=== PATIENT | male | born 1945 | race Caucasian/White ===

== ENCOUNTER 2019-08-11 15:23 | Observation (INO) ==
[2019-08-11 16:38] LABS: Basophils % 0.2 %; Eosinophils # 0.1 K/mcL (0.0-0.6); Eosinophils % 1.8 %; Hematocrit 35.9 % (37.5-50.1); Hemoglobin 11.9 g/dL (12.9-16.9); Immature Granulocytes % 0.8 % (0-4); Lymphocytes # 1.9 K/mcL (0.6-4.6); Lymphocytes % 37.2 %; Mean Corpuscular HGB Conc 33.1 g/dL (31.6-35.5); Mean Corpuscular Hemoglobin 30.1 pg (28.0-33.3); Mean Corpuscular Volume 90.9 fL (83.0-100.0); Mean Platelet Volume 9.7 fL (9.4-12.4); Monocytes # 0.6 K/mcL (0.0-1.3); Monocytes % 11.1 %; Neutrophils # 2.5 K/mcL (1.6-8.9); Platelet Count 200 K/mcL (140-400); Red Blood Count 3.95 M/mcL (4.19-5.50); Red Cell Distribution Width 13.4 % (11.5-14.5); Segmented Neutrophils % 48.9 %; White Blood Count 5.1 K/mcL (4.3-11.1)
[2019-08-11 17:10] LABS: BUN/Creatinine Ratio 14 (6-26); Blood Urea Nitrogen 32 mg/dL (8-23); Calcium 9.1 mg/dL (8.6-10.3); Carbon Dioxide 27 mEq/L (23-29); Chloride 99 mEq/L (98-107); Creatine Kinase 98 Units/L (30-223); Glucose 111 mg/dL (70-105); Magnesium 1.8 mg/dL (1.6-2.6); Osmolality,Calculated 292 (280-300); Phosphorous 3.5 mg/dL (2.7-4.5); Potassium 3.4 mEq/L (3.5-5.1); Sodium 137 mEq/L (136-145); eGFR For African Americans 33 (> 60); eGFR For Non-African Americans 27 (> 60)
[2019-08-11 17:36] LABS: Folate 3.1 ng/mL (3.0-16.0)
[2019-08-11] MEDS ORDERED: 0.9 % Sodium Chloride 1,000 ML IVC ONE (17:46)
[2019-08-11 17:56] LABS: Acetaminophen < 10 mcg/mL (10-20); Ethanol < 10 mg/dL (Less than 10)
[2019-08-11 18:37] LABS: Bilirubin,Urine Negative (Negative); Blood,Urine Negative (Negative); Clarity,Urine Clear (Clear); Color,Urine Yellow (Yellow); Glucose,Urine (UA) Normal (Normal); Ketones,Urine Negative (Negative); Leukocyte Esterase,Urine Negative (Negative); Nitrite,Urine Negative (Negative); PH,Urine 6.5 pH Units (5.0-8.0); Protein,Urine Trace mg/dL (Neg-Trace); Specific Gravity,Urine 1.022 (1.010-1.025); Urobilinogen,Urine Normal (Normal)
[2019-08-11 19:03] LABS: Amphetamine Screen,Urine Negative ng/mL (Cutoff=1000); Barbiturate Screen,Urine Negative ng/mL (Cutoff=200); Benzodiazepines Screen,Urine Negative ng/mL (Cutoff=200); Cannabinoid Screen,Urine Negative ng/mL (Cutoff = 50); Cocaine Screen,Urine Negative ng/mL (Cutoff= 300); Opiate Screen,Urine Negative ng/mL (Cutoff=300); Phencyclidine Screen,Urine Negative ng/mL (Cutoff=25)
[2019-08-11] MEDS ORDERED: Aspirin 325 MG TABLET PO ONE (19:54)
[2019-08-11 20:16] LABS: Prothrombin Time 11.7 Seconds (9.4-12.1)
[2019-08-11 20:18] LABS: Activated Partial Thrombo Time 32.7 Seconds (26.0-36.0)
[2019-08-11] MEDS ORDERED: Naloxone 0.4 MG/ML INJ IVP PRN (20:36)
[2019-08-11] MEDS ORDERED: 0.9 % Sodium Chloride 1,000 ML IVC SCH (20:45)
[2019-08-11] MEDS ORDERED: *HR* Heparin 5,000 UNIT/ML VIAL IVP ONE (21:48)
[2019-08-11] MEDS ORDERED: *HR* Heparin 5,000 UNIT/ML VIAL IVP PRN ×2 (21:48)
[2019-08-11] MEDS ORDERED: *HR* Dextrose 50 % in Water (Syg) 50 ML SYRINGE IVP PRN (21:50)
[2019-08-11] MEDS ORDERED: Dextrose Gel 15 GM/37.5 ML TUBE PO PRN ×2 (21:50)
[2019-08-11] MEDS ORDERED: D5% in Water 1,000 ML IVC PRN (21:50)
[2019-08-11 22:12] LABS: Heparin anti-factor XA UFH < 0.04 IU/mL (0.30-0.70)
[2019-08-11 22:13] LABS: INR 1.1; Prothrombin Time 12.3 Seconds (9.4-12.1)
[2019-08-11] MEDS: Potassium Chloride Elixir 20 MEQ/15 ML UDC PO SCH (22:40)
[2019-08-11] MEDS: Heparin 25,000 UNIT/250 ML D5W 25,000 UNIT/250 ML IV.SOLN IVC SCH (22:40)
[2019-08-11] MEDS: 0.9 % Sodium Chloride 1,000 ML IVC SCH (22:43)
[2019-08-11] MEDS: Insulin LISPRO 300 UNITS/3 ML VIAL SQ SCH (22:46)
[2019-08-12] MEDS: Potassium Chloride Elixir 20 MEQ/15 ML UDC PO SCH (00:13)
[2019-08-12 00:57] LABS: Basophils % 0.4 %; Eosinophils # 0.1 K/mcL (0.0-0.6); Eosinophils % 1.5 %; Hemoglobin 11.8 g/dL (12.9-16.9); Immature Granulocytes % 0.3 % (0-4); Lymphocytes # 2.9 K/mcL (0.6-4.6); Lymphocytes % 42.2 %; Mean Corpuscular HGB Conc 32.8 g/dL (31.6-35.5); Mean Corpuscular Hemoglobin 29.8 pg (28.0-33.3); Mean Corpuscular Volume 90.9 fL (83.0-100.0); Mean Platelet Volume 10.1 fL (9.4-12.4); Monocytes # 0.6 K/mcL (0.0-1.3); Monocytes % 9.2 %; Neutrophils # 3.1 K/mcL (1.6-8.9); Platelet Count 209 K/mcL (140-400); Red Blood Count 3.96 M/mcL (4.19-5.50); Red Cell Distribution Width 13.5 % (11.5-14.5); Segmented Neutrophils % 46.4 %; White Blood Count 6.8 K/mcL (4.3-11.1)
[2019-08-12 00:59] LABS: Calcium 8.8 mg/dL (8.6-10.3); Magnesium 1.6 mg/dL (1.6-2.6); Phosphorous 2.4 mg/dL (2.7-4.5); Potassium 3.8 mEq/L (3.5-5.1)
[2019-08-12 04:40] LABS: Estimated Average Glucose 131 mg/dl
[2019-08-12] MEDS: 0.9 % Sodium Chloride 1,000 ML IVC SCH ×2 (05:24→17:19)
[2019-08-12] MEDS: Insulin LISPRO 300 UNITS/3 ML VIAL SQ SCH ×3 (07:42→17:19)
[2019-08-12] MEDS ORDERED: Perflutren Lipid Microsphere 1.3 ML in 0.9 % Sodium Chloride 8.7 ML IVP ONE (09:57)
[2019-08-12] MEDS: Gabapentin 400 MG CAPSULE PO SCH ×2 (13:06→20:55)
[2019-08-12] MEDS: Aspirin Enteric Coated 81 MG Tablet PO SCH (15:30)
[2019-08-12] MEDS: predniSONE 20 MG TABLET PO SCH (15:30)
[2019-08-12] MEDS ORDERED: Insulin LISPRO 300 UNITS/3 ML VIAL SQ SCH (21:00)
[2019-08-13] MEDS ORDERED: *HR* HYDROmorphone 2 MG TABLET PO ONE (00:12)
[2019-08-13] MEDS: 0.9 % Sodium Chloride 1,000 ML IVC SCH (01:20)
[2019-08-13 01:47] LABS: Hematocrit 34.8 % (37.5-50.1); Hemoglobin 11.5 g/dL (12.9-16.9); Immature Granulocytes % 1.1 % (0-4); Lymphocytes # 0.5 K/mcL (0.6-4.6); Mean Corpuscular Volume 90.9 fL (83.0-100.0); Mean Platelet Volume 9.7 fL (9.4-12.4); Monocytes # 0.1 K/mcL (0.0-1.3); Monocytes % 1.9 %; Platelet Count 192 K/mcL (140-400); Red Blood Count 3.83 M/mcL (4.19-5.50); Red Cell Distribution Width 13.2 % (11.5-14.5); White Blood Count 3.6 K/mcL (4.3-11.1)
[2019-08-13 02:05] LABS: Calcium 8.8 mg/dL (8.6-10.3); Potassium 3.8 mEq/L (3.5-5.1)
[2019-08-13] MEDS: Heparin 25,000 UNIT/250 ML D5W 25,000 UNIT/250 ML IV.SOLN IVC SCH (02:43)
[2019-08-13] MEDS ORDERED: Acetaminophen 325 MG TABLET PO ONE (04:50)
[2019-08-13] MEDS ORDERED: *HR* Metoprolol 5 MG/5 ML VIAL IVP ONE ×2 (05:40→07:57)
[2019-08-13] MEDS ORDERED: *HR* LORazepam 2 MG/ML VIAL IVP ONE (06:05)
[2019-08-13] MEDS: Insulin LISPRO 300 UNITS/3 ML VIAL SQ SCH ×2 (07:54→12:07)
[2019-08-13] MEDS ORDERED: (Linaclotide [Linzess] 145 MCG) PO SCH (09:00)
[2019-08-13] MEDS ORDERED: Triamterene/HCTZ 75/50 mg TABLET PO SCH (09:00)
[2019-08-13] MEDS ORDERED: amLODIPine 5 MG TABLET PO SCH (10:00)
[2019-08-13] MEDS: predniSONE 20 MG TABLET PO SCH (10:20)
[2019-08-13] MEDS: Gabapentin 400 MG CAPSULE PO SCH (10:20)
[2019-08-13] MEDS: Aspirin Enteric Coated 81 MG Tablet PO SCH (10:20)
[2019-08-13] MEDS ORDERED: levoFLOXacin 750 MG TABLET PO SCH (10:30)
[2019-08-13 12:35] VITALS: BP 173/77
== END 2019-08-13 14:50 | disposition home or self-care (01) ==
LOC: 2ANU 15:23 → EMEROOARM 15:23 → SUATTDRO 20:15 → 2ANU 20:42
PROVIDERS: ADMIT Internal Medicine; ATTEND Family Medicine

== ENCOUNTER 2019-08-19 11:14 | Inpatient (IN) ==
[2019-08-19] MEDS ORDERED: Ondansetron 4 MG/2 ML VIAL IVP ONE ×2 (11:41→15:41)
[2019-08-19] MEDS ORDERED: 0.9 % Sodium Chloride 500 ML IVC ONE ×2 (11:41→15:45)
[2019-08-19 12:29] LABS: Hematocrit 47.4 % (37.5-50.1); Mean Corpuscular HGB Conc 33.3 g/dL (31.6-35.5); Mean Corpuscular Hemoglobin 29.6 pg (28.0-33.3); Mean Corpuscular Volume 88.8 fL (83.0-100.0); Mean Platelet Volume 9.3 fL (9.4-12.4); Platelet Count 280 K/mcL (140-400); Red Blood Count 5.34 M/mcL (4.19-5.50); Red Cell Distribution Width 12.9 % (11.5-14.5)
[2019-08-19 12:33] LABS: Hemoglobin 15.8 g/dL (12.9-16.9); White Blood Count 10.4 K/mcL (4.3-11.1)
[2019-08-19 12:46] LABS: Calcium 9.3 mg/dL (8.6-10.3); Potassium 2.9 mEq/L (3.5-5.1); Troponin I 0.03 ng/mL (< 0.04)
[2019-08-19] MEDS: Potassium Chloride Elixir 20 MEQ/15 ML UDC PO ONE ×2 (14:01→14:09)
[2019-08-19 14:29] LABS: Bilirubin,Urine Negative (Negative); Blood,Urine Trace (Negative); Clarity,Urine Clear (Clear); Color,Urine Yellow (Yellow); Glucose,Urine (UA) Normal (Normal); Ketones,Urine Negative (Negative); Leukocyte Esterase,Urine Negative (Negative); Nitrite,Urine Negative (Negative); PH,Urine 6.5 pH Units (5.0-8.0); Protein,Urine >=1000 mg/dL (Neg-Trace); Specific Gravity,Urine 1.019 (1.010-1.025); Urobilinogen,Urine Normal (Normal)
[2019-08-19 14:31] LABS: Bacteria,Urine None Seen per hpf (None-Few); Hyaline Casts,Urine None Seen per lpf (None-Few); RBC,Urine 15-30 per hpf (0-3); Squamous Epithelial Cell,Urine Many per lpf (None-Few)
[2019-08-19] MEDS: DilTIAZem 50 MG/50 ML IV.SOLN IVC SCH ×2 (15:42→19:26)
[2019-08-19] MEDS ORDERED: *HR* Heparin 5,000 UNIT/ML VIAL IVP ONE (16:49)
[2019-08-19] MEDS ORDERED: *HR* Heparin 5,000 UNIT/ML VIAL IVP PRN ×2 (16:49)
[2019-08-19] MEDS ORDERED: Gadolinium Contrast Agent (WT Based) IV PRN (16:50)
[2019-08-19] MEDS ORDERED: Potassium Chloride Elixir 20 MEQ/15 ML UDC PO ONE (16:53)
[2019-08-19] MEDS ORDERED: Dextrose Gel 15 GM/37.5 ML TUBE PO PRN ×2 (17:27)
[2019-08-19] MEDS ORDERED: D5% in Water 1,000 ML IVC PRN (17:27)
[2019-08-19] MEDS ORDERED: *HR* Dextrose 50 % in Water (Syg) 50 ML SYRINGE IVP PRN (17:27)
[2019-08-19] MEDS ORDERED: *HR* Metoprolol 5 MG/5 ML VIAL IVP ONE (19:04)
[2019-08-19] MEDS: Heparin 25,000 UNIT/250 ML D5W 25,000 UNIT/250 ML IV.SOLN IVC SCH (19:28)
[2019-08-19] MEDS: Gabapentin 400 MG CAPSULE PO SCH (19:38)
[2019-08-19] MEDS ORDERED: *HR* Metoprolol 5 MG/5 ML VIAL IVP PRN (20:24)
[2019-08-19] MEDS: Insulin LISPRO 300 UNITS/3 ML VIAL SQ SCH (20:46)
[2019-08-20 02:50] LABS: BUN/Creatinine Ratio 18 (6-26); Blood Urea Nitrogen 25 mg/dL (8-23); Calcium 8.3 mg/dL (8.6-10.3); Carbon Dioxide 24 mEq/L (23-29); Chloride 103 mEq/L (98-107); Glucose 141 mg/dL (70-105); Magnesium 1.4 mg/dL (1.6-2.6); Osmolality,Calculated 293 (280-300); Sodium 138 mEq/L (136-145); eGFR For African Americans > 60 (> 60); eGFR For Non-African Americans 51 (> 60)
[2019-08-20 02:52] LABS: Troponin I 0.05 ng/mL (< 0.04)
[2019-08-20] MEDS: Morphine Sulfate 2 MG/ML SYRINGE IVP PRN (05:07)
[2019-08-20] MEDS: Gabapentin 400 MG CAPSULE PO SCH ×4 (08:49→20:50)
[2019-08-20] MEDS: Insulin LISPRO 300 UNITS/3 ML VIAL SQ SCH ×4 (08:51→20:46)
[2019-08-20] MEDS ORDERED: Magnesium Sulfate 1 GM/102 ML PIGGYBACK IVPB ONE (09:29)
[2019-08-20] MEDS: DilTIAZem CD (24hr) 180 MG CAP.ER.24H PO ONE ×2 (15:05→15:06)
[2019-08-20] MEDS ORDERED: Acetaminophen 325 MG TABLET PO ONE (15:24)
[2019-08-20] MEDS: Heparin 25,000 UNIT/250 ML D5W 25,000 UNIT/250 ML IV.SOLN IVC SCH (18:41)
[2019-08-20] MEDS: *HR* OxyCODONE Immed Rel 5 MG TABLET PO PRN (23:00)
[2019-08-21] MEDS ORDERED: Acetaminophen 325 MG TABLET PO ONE (01:53)
[2019-08-21] MEDS: Gabapentin 400 MG CAPSULE PO SCH ×3 (09:36→20:23)
[2019-08-21] MEDS: Insulin LISPRO 300 UNITS/3 ML VIAL SQ SCH ×4 (09:36→20:28)
[2019-08-21] MEDS: DilTIAZem CD (24hr) 180 MG CAP.ER.24H PO SCH (09:36)
[2019-08-21] MEDS: *HR* OxyCODONE Immed Rel 5 MG TABLET PO PRN ×2 (09:52→22:42)
[2019-08-21] MEDS ORDERED: Morphine Sulfate 2 MG/ML SYRINGE IVP PRN (23:40)
[2019-08-21] MEDS ORDERED: *HR* OxyCODONE Immed Rel 5 MG TABLET PO PRN (23:41)
[2019-08-21] MEDS ORDERED: *HR* OxyCODONE Immed Rel 5 MG TABLET PO ONE (23:46)
[2019-08-22] MEDS: DilTIAZem CD (24hr) 180 MG CAP.ER.24H PO SCH (09:50)
[2019-08-22] MEDS: Gabapentin 400 MG CAPSULE PO SCH ×3 (09:50→20:23)
[2019-08-22] MEDS ORDERED: Fluticasone Propionate Nasal 50 MCG/SPRAY BOTTLE NS SCH (10:00)
[2019-08-22] MEDS: Insulin LISPRO 300 UNITS/3 ML VIAL SQ SCH ×4 (11:05→20:25)
[2019-08-22] MEDS ORDERED: Triamterene/HCTZ 75/50 mg TABLET PO SCH ×2 (12:00→13:15)
[2019-08-22] MEDS: Morphine Sulfate 2 MG/ML SYRINGE IVP PRN (13:29)
[2019-08-22] MEDS ORDERED: Acetaminophen 325 MG TABLET PO PRN (16:08)
[2019-08-22] MEDS ORDERED: Ondansetron 4 MG/2 ML VIAL IVP ONE (16:09)
[2019-08-22] MEDS ORDERED: Ondansetron 4 MG/2 ML VIAL IVP PRN (16:40)
[2019-08-23] MEDS: Morphine Sulfate 2 MG/ML SYRINGE IVP PRN (06:09)
[2019-08-23 07:00] VITALS: BP 148/93
[2019-08-23 11:44] LABS: Hematocrit 36.8 % (37.5-50.1); Mean Corpuscular HGB Conc 34.5 g/dL (31.6-35.5); Mean Corpuscular Hemoglobin 31.2 pg (28.0-33.3); Mean Corpuscular Volume 90.4 fL (83.0-100.0); Mean Platelet Volume 9.7 fL (9.4-12.4); Platelet Count 157 K/mcL (140-400); Red Blood Count 4.07 M/mcL (4.19-5.50); Red Cell Distribution Width 12.9 % (11.5-14.5); White Blood Count 9.2 K/mcL (4.3-11.1)
[2019-08-23 11:48] LABS: Hemoglobin 12.7 g/dL (12.9-16.9)
[2019-08-23 12:07] LABS: Lymphocytes # 1.7 K/mcL (0.6-4.6); Monocytes # 0.7 K/mcL (0.0-1.3); Neutrophils # 6.8 K/mcL (1.6-8.9)
[2019-08-23 12:08] LABS: Anisocytosis 1+ (Not Present); Platelet Estimate Normal (Normal)
== END 2019-08-23 16:15 | disposition other institution (70) | DRG 309 ==
LOC: EMEROOARM 11:14 → 2ANU 11:14 → SUATTDRO 15:53 → 2ANU 16:42
PROVIDERS: ADMIT Internal Medicine; ATTEND Internal Medicine